=== PATIENT | female | born 1980 | race Two or more races ===

== ENCOUNTER 2017-01-29 05:26 | Day surgery (SDC) | payer MEDICAID ==
[2017-01-28 11:01] LABS: HEMATOCRIT 34.1 % (36.0-48.0); HEMOGLOBIN 11.3 g/dL (12-16); MCH 30.2 pg (26.0-34.0); MCHC 33.1 g/dL (31.0-37.0); MCV 91.2 fL (80.0-100.0); MEAN PLATELET VOLUME 10.1 fL (7.4-10.4); RBC 3.74 10x6/uL (4.00-5.40); RDW 13.1 % (11.5-14.5); WBC 6.5 10x3/uL (4.8-10.8)
[~2017-01-29] VITALS: Ht 175.3 cm; Wt 97.7 kg
[~2017-01-29 05:26] MED LIST: ADIPEX-P37.5 MG PO; KLONOPIN0.5 MG PO; LITHIUM CARBON150 MG PO; MOBIC7.5 MG PO; MOTRIN600 MG PEG; PERCOCET 5/3251 TA1 PO; PROZAC20 MG PO; XANAX0.5 MG PO
[2017-01-29] MEDS ORDERED: CLARITIN 10 MG10 MG PO (07:42)
[2017-01-29 07:43] VITALS: BP 120/65; Ht 175.3 cm; Wt 97.7 kg
--- NOTE | 2017-01-29 11:10 | NUR ---
1110--DR LANGE AT BEDSIDE REPORTING TO PT WHAT HE DID IN SURGERY, NOTES TAKEN AND WRITTEN DOWN ON DISCHARGE INSTRUCTIONS. YARIEL NICHOLSON
--- NOTE | 2017-01-29 11:26 | NUR ---
1125--IV DC'D, PT UP TO DRESS AT THIS TIME. YARIEL NICHOLSON
--- NOTE | 2017-01-29 11:29 | NUR ---
1130--DISCHARGE INSTRUCTIONS GIVEN, PT VERBALIZES UNDERSTANDING. PT OFF UNIT VIA WC
--- NOTE | 2017-02-05 13:40 | OP ---
PATIENT NAME: FREDERIC SOSA MEDICAL RECORD: [id number] :84 LOCATION:[facility] ADMISSION DATE: SURGEON: CAROL LANGE DPM DATE OF OPERATION: 01/29/2017 PREOPERATIVE DIAGNOSIS: Ganglion cyst, left foot. POSTOPERATIVE DIAGNOSIS: Ganglion cyst, left foot. PROCEDURE: Excision of ganglion cyst, left lateral foot. ANESTHESIA: Local with IV sedation utilizing lidocaine and Marcaine plain, 13 cc total on the lateral left foot. HEMOSTASIS: Left ankle tourniquet at 250 mmHg. PREOPERATIVE DETAILS: The patient was taken to the OR, placed on the operating table in supine position. This was followed by induction of general anesthesia and infiltration of local anesthetic. The left extremity was then prepped and draped in the usual aseptic technique followed by exsanguination and inflation of tourniquet. A 15 blade was used to create a 3 cm linear incision over the lateral aspect of the left foot overlying the lesion. The incision was deepened down through subcutaneous tissue. Dissection was carried down through the subcutaneous tissue with Metzenbaum scissors being sure to avoid all vital structures. The ganglion cyst was localized and resected. The ganglion cyst itself extended down near the bone of the base of the fifth metatarsal, was multilobular in nature, and the specimens were sent for histological and pathological review. The wound was flushed. The deep tissue was closed with 4-0 Rapide. The subcutaneous tissue was repaired with 4-0 Rapide and the skin was reapproximated and closed with 4-0 Rapide in a subcuticular technique followed by Dermabond, Adaptic, 4 x 4, and Conform were used to dress the wound followed by Coban. Tourniquet was deflated. POSTOPERATIVE DETAILS: The patient tolerated the procedure well and left the OR with vital signs stable and vascular status at preoperative levels. The patient was transported to recovery per anesthesia in stable condition. TRANSINT:[id number] Voice Confirmation ID: [id number] DOCUMENT ID: [id number] CAROL LANGE DPM at 1340 CC: [id number] DICTATION DATE: 01/29/17 0931 [employer] INFORMATION CLERK: 01/29/17 [id number] [facility] 01/29/17 [place] [id number]
== END 2017-01-29 11:30 | disposition home or self-care (01) ==
LOC: D.OPS 05:26 → D.PAN 08:30 → D.OPS 08:45
PROVIDERS: Anesthesiology
DX: M67.472 Ganglion, left ankle and foot (principal); F17.200 Nicotine dependence, unspecified, uncomplicated; K21.9 Gastro-esophageal reflux disease without esophagitis